=== PATIENT | female | born 1945 | race Caucasian/White ===

== ENCOUNTER → 2016-12-31 | Outpatient (CLI) | payer MEDICARE | END | disposition disaster alternative care site (69) | LOC: GAMB 18:19 | DX: F41.9 Anxiety disorder, unspecified (principal); R11.0 Nausea; R06.4 Hyperventilation; R07.89 Other chest pain; Z85.3 Personal history of malignant neoplasm of breast; Z88.0 Allergy status to penicillin; Z88.6 Allergy status to analgesic agent | CPT/HCPCS: A0425; A0427 ==

== ENCOUNTER → 2017-01-29 | Outpatient (CLI) | payer MEDICARE | END | disposition disaster alternative care site (69) | LOC: GRAD 09:45 | DX: C50.112 Malignant neoplasm of central portion of left female breast (principal); N63 Unspecified lump in breast ==